=== PATIENT | female | born 1995 | race Caucasian/White ===

== ENCOUNTER → 2018-02-05 16:04 | Outpatient (CLI) | payer OTHER, SELFPAY ==
[2018-02-06 00:31] LABS: Chlamydia Trachomatis by PCR Negative (Negative); Neisserai gonorrhoeae by PCR Negative (Negative); Probe Check PASS; Sample Adequacy Control PASS; Specimen Processing Control PASS
[2018-02-08 14:29] LABS: HPV Reflexed? NOT INDICATED
== END ==
PROVIDERS: Visit Provider Obstetrics & Gynecology
DX: Z32.01 Encounter for pregnancy test, result positive (principal); Z12.4 Encounter for screening for malignant neoplasm of cervix; Z11.3 Encounter for screening for infections with a predominantly sexual mode of transmission
CPT/HCPCS: 87491; 87591; 88175; G0145

== ENCOUNTER → 2018-02-19 15:55 | Outpatient (CLI) | payer OTHER, SELFPAY ==
[2018-02-19 17:54] LABS: Absolute Lymphocyte Count 2.47 X10^3/ul (0.83-4.51); Absolute Neutrophil Count 11.3 X10^3/uL (2.0-7.7); Basophil# 0.03 X10^3/uL; Basophil% 0.2 % (0-1); Eosinophil# 0.11 X10^3/uL; Eosinophils% 0.7 % (0-5); Hematocrit 36.8 % (37-47); Hemoglobin 12.5 g/dl (12.0-15.0); Lymphocyte # 2.47 X10^3/ul (4.0); Lymphocyte % 16.7 % (19-41); Mean Corpuscular Hgb 29.5 pg (27.0-32.0); Mean Corpuscular Volume 86.8 fL (81-99); Mean Platelet Vol. 11.6 fl (6.2-12.0); Monocyte# 0.91 X10^3/uL; Monocyte% 6.1 % (0-10); Neutrophil # 11.28 X10^3/uL (2.7-7.7); Neutrophil % 76.1 % (47-70); Platelet Count 301 K/mm3 (150-450); RBC Distribution Width CV 13.2 % (11.6-14.6); RBC Distribution Width SD 41.9 fl (35.1-43.9); Red Blood Count 4.24 M/mm3 (4.2-5.4); White Blood Count 14.8 K/mm3 (4.4-11.0)
[2018-02-19 17:58] LABS: POSITIVE COUNT NO; POSITIVE DIFFERENTIAL NO; POSITIVE MORPHOLOGY NO
[2018-02-19 18:42] LABS: Color, Urine Yellow (Yellow); Glucose, Dipstick Normal (Normal); Ketone-Dipstick Negative (Negative); Leukocyte Esterase-Dipstick 25 /ul (Negative); Nitrite-Dipstick Negative (Negative); Occult Blood-Urine Negative /ul (Negative); Protein-Dipstick Negative (Negative); Urine Bilirubin Dipstick Negative (Negative); Urine Clarity Clear (Clear); Urine Urobilinogen Normal (Normal)
[2018-02-19 18:46] LABS: Thyroid Stim Hormone (TSH) 6.91 uIU/mL (0.358-3.74)
[2018-02-19 18:59] LABS: Amphetamine Urine VISTA NEGATIVE (<1000 ng/mL); Barbiturate Urine VISTA NEGATIVE (< 200 ng/mL); Benzodiazepine Urine VISTA NEGATIVE (< 200 ng/mL); Cocaine Urine VISTA NEGATIVE (< 300 ng/mL); Ecstacy Urine VISTA NEGATIVE (< 500 ng/mL); Methadone Urine VISTA NEGATIVE (< 300 ng/mL); PCP Urine VISTA NEGATIVE (< 25 ng/mL); THC Urine VISTA NEGATIVE (< 50 ng/mL); Vista UDS pH Range 6
[2018-02-19 19:06] LABS: COTININE Drug Screen Negative (<200 ng/mL)
[2018-02-20 11:00] LABS: HIV - WCH Non-Reactive (Nonreactive); Rubella IgG 112.9 IU/mL
[2018-02-21 12:34] LABS: Free T3 2.7 pg/mL (2.18-3.98); T4 Free Direct 1.03 ng/dL (0.76-1.46)
[2018-02-22 04:35] LABS: Prenatal RPR NONREACTIVE (NONREACTIVE)
[2018-02-22 11:50] LABS: HEPATITIS B SURFACE AG Negative (Negative); Hep C Antibodies 0.2 s/co ratio (0.0-0.9); V-Zoster IgG (Immunity) 1468 index (Immune >165)
== END ==
PROVIDERS: Visit Provider Obstetrics & Gynecology
DX: Z34.81 Encounter for supervision of other normal pregnancy, first trimester (principal)
CPT/HCPCS: 36415; 80307; 81002; 84439; 84443; 84481; 85025; 86703; 86762; 86787; 86803; 87340

== ENCOUNTER → 2018-06-19 13:16 | Outpatient (CLI) | payer OTHER, SELFPAY ==
[2018-06-19 16:29] LABS: Hematocrit 34.1 % (37-47); Hemoglobin 11.2 g/dl (12.0-15.0); Mean Corp Hgb Conc 32.8 g/gl (32-36); Mean Corpuscular Hgb 30.7 pg (27.0-32.0); Mean Corpuscular Volume 93.4 fL (81-99); Mean Platelet Vol. 11.9 fl (6.2-12.0); Platelet Count 257 K/mm3 (150-450); RBC Distribution Width CV 13.6 % (11.6-14.6); RBC Distribution Width SD 44.9 fl (35.1-43.9); Red Blood Count 3.65 M/mm3 (4.2-5.4); White Blood Count 12.4 K/mm3 (4.4-11.0)
[2018-06-19 16:30] LABS: Glucose Challenge Gest 1H 50g 127 mg/dL (70-140)
[2018-06-19 16:33] LABS: Scan Indicated on CBC? Y/N NO
== END ==
PROVIDERS: Visit Provider Obstetrics & Gynecology
DX: Z34.82 Encounter for supervision of other normal pregnancy, second trimester (principal)
CPT/HCPCS: 36415; 82950; 85027; 86850

== ENCOUNTER → 2018-08-14 13:40 | Outpatient (CLI) | payer OTHER, SELFPAY ==
--- OUTSIDE RECORDS SUMMARY | 2018-10-19 10:25 | XMS RPT_ITS ---
:1995 Author Organization [facility] Care Team Providers Name Role Phone Guera, Abrahan Attending Unavailable Primay Care Physicia, No Primary Care Unavailable Seals, Abrahan Attending Unavailable Seals, Abrahan Referring Unavailable Primay Care Physicia, No Primary Care Unavailable Seals, Abrahan Attending Unavailable Primay Care Physicia, No Primary Care Unavailable Seals, Abrahan Attending Unavailable Primay Care Physicia, No Primary Care Unavailable PROBLEMS PROBLEMS DATE TYPE CONDITION / CODE ATTENDING STATUS SOURCE 08/14/2018 Unknown Z36.85 - Encounter Abrahan Lynne for Community screening for Hospital Streptococcus B / Repository Z36.85(ICD-10) 02/19/2018 Unknown Z34.81 - Encounter Abrahan Lynne for supervision of Community other normal Hospital , first Repository trimester / Z34.81(ICD-10) PROCEDURES PROCEDURES No Procedure Records FoundRESULTS RESULTS Observed: 08/14/2018 Status: F Source: [place] MCDONNELL, GROUP B 11:50 AM [facility] STREPTOCOCCUS REPOSITORY Comments: VAGINAL/RECTAL DANIA Culture Group B Beta Streptococcus is not isolated. Performed By: #### M100.1800 #### [facility] [address] [place], [address] GLUCOSE CHALLENGE GEST Collected: 06/19/2018 Status: F Source: [place] 1H 50G 1:20 PM [facility] REPOSITORY TYPE CODE TESTS RESULT OUT OF RANGE REFERENCE UNITS LAB L501.0250 70-140 mg/dL Normal GLU GEST 127 50g 1H Performed By: #### L501.0250 #### [facility] [address] [place], [place], [id number] CBC-COMPLETE BLOOD CNT Collected: 06/19/2018 Status: F Source: [place] NO DIFF 1:20 PM [facility] REPOSITORY TYPE CODE TESTS RESULT OUT OF RANGE REFERENCE UNITS LAB L100.1000 4.4-11.0 K/mm3 High WBC 12.4 LAB L100.1200 4.2-5.4 M/mm3 Low RBC 3.65 LAB L100.1300 12.0-15.0 g/dl Low HGB 11.2 LAB L100.1400 37-47 % Low HCT 34.1 LAB L100.1500 81-99 fL Normal MCV 93.4 LAB L100.1600 27.0-32.0 pg Normal MCH 30.7 LAB L100.1700 32-36 g/gl Normal MCHC 32.8 LAB L100.1810 11.6-14.6 % Normal RDW CV 13.6 LAB L100.1820 35.1-43.9 fl High RDW SD 44.9 LAB L100.1900 150-450 K/mm3 Normal PLT 257 LAB L100.2000 6.2-12.0 fl Normal MPV 11.9 Performed By: #### L100.0500 #### [facility] [address] [place], [place], [id number] ANTIBODY SCREEN Collected: 06/19/2018 Status: F Source: [place] 1:20 PM [facility] REPOSITORY TYPE CODE TESTS RESULT OUT OF RANGE REFERENCE UNITS LAB B100.4000 Normal Antibody NEGATIVE Screen Performed By: #### B100.4000 #### [facility] [address] [place], [place], [address] URINE DRUG SCREEN Collected: 02/19/2018 Status: F Source: [place] (VISTA) 4:00 PM [facility] REPOSITORY Order Comment: Comments: UNK List of Drugs Taken or Suspected? UNK TYPE CODE TESTS RESULT OUT OF RANGE REFERENCE UNITS LAB L505.0075 TO BE Normal CONFIRMED Result Comment: CONFIRMATORY TESTING FOR ALL POSITIVE URINE DRUG SCREEN RESULTS WILL ONLY BE SENT OUT UPON PHYSICIAN ORDER. VISTA Urine Drug Screen methods provide only preliminary analytical test results. A more specific alternate chemical method must be used in order to obtain a confirmed analytical result. Gas chromatography/mass spectrometery (GC/MS) is the preferred confirmatory method. Clinical consideration and professional judgement should be applied to any drug of abuse test result, particularly when preliminary positive results are used. URINE TCA TESTING MUST BE ORDERED SEPARATELY. USE TEST MNEMONIC: [facility] LAB L505.5005 VISTA UDS PH 6 Normal LAB L505.5015 <1000 ng/mL AMPHETAMINES Normal NEGATIVE LAB L505.5025 < 200 ng/mL BARBITIURATES Normal NEGATIVE LAB L505.5035 < 200 ng/mL BENZODIAZIPINE Normal NEGATIVE LAB L505.5045 < 300 ng/mL COCAINE Normal NEGATIVE LAB L505.5055 < 500 ng/mL ECSTACY Normal NEGATIVE LAB L505.5065 < 300 ng/mL METHADONE Normal NEGATIVE LAB L505.5075 < 300 ng/mL OPIATES Normal NEGATIVE LAB L505.5085 < 25 ng/mL PCP Normal NEGATIVE LAB L505.5095 < 50 ng/mL THC Normal NEGATIVE Performed By: #### L505.5000, L505.6240 #### [facility] [address] [place], [address] NICOTINE URINE DRUG Collected: 02/19/2018 Status: F Source: [place] SCREEN 4:00 PM [facility] REPOSITORY Order Comment: Comments: UNK List of Drugs Taken or Suspected? UNK TYPE CODE TESTS RESULT OUT OF RANGE REFERENCE UNITS LAB L505.6250 TO BE Normal CONFIRMED Result Comment: CONFIRMATORY TESTING FOR ALL POSITIVE URINE DRUG SCREEN RESULTS WILL ONLY BE SENT OUT UPON PHYSICIAN ORDER. The results of Urine Drug Screen methods provide only preliminary analytical test results. A more specific alternate chemical method must be used in order to obtain a confirmed analytical result. Gas chromatography/mass spectrometery (GC/MS) is the preferred confirmatory method. Clinical consideration and professional judgement should be applied to any drug of abuse test result, particularly when preliminary positive results are used. LAB L505.6270 <200 ng/mL Normal COT DRG Negative SCREEN Result Comment: Cotinine is the first-stage metabolite of Nicotine. Performed By: #### L505.5000, L505.6240 #### [facility] [address] [place], [place], [address] CBC W/DIFF, AUTOMATED Collected: 02/19/2018 Status: F Source: [place] 4:00 PM [facility] REPOSITORY TYPE CODE TESTS RESULT OUT OF RANGE REFERENCE UNITS LAB L100.1000 4.4-11.0 K/mm3 High WBC 14.8 LAB L100.1200 4.2-5.4 M/mm3 Normal RBC 4.24 LAB L100.1300 12.0-15.0 g/dl Normal HGB 12.5 LAB L100.1400 37-47 % Low HCT 36.8 LAB L100.1500 81-99 fL Normal MCV 86.8 LAB L100.1600 27.0-32.0 pg Normal MCH 29.5 LAB L100.1700 32-36 g/gl Normal MCHC 34.0 LAB L100.1810 11.6-14.6 % Normal RDW CV 13.2 LAB L100.1820 35.1-43.9 fl Normal RDW SD 41.9 LAB L100.1900 150-450 K/mm3 Normal PLT 301 LAB L100.2000 6.2-12.0 fl Normal MPV 11.6 LAB L100.2100 47-70 % High NEUT% 76.1 LAB L100.2200 19-41 % Low LY% 16.7 LAB L100.2300 0-10 % Normal MONO% 6.1 LAB L100.2400 0-5 % Normal EO% 0.7 LAB L100.2500 0-1 % Normal BASO% 0.2 LAB L100.2550 0.0-0.9 % Normal IM GRAN % 0.200 Result Comment: IG% - Immature Granulocytes (promyelocytes, myelocytes and metamyelocytes) > 1% indicates that a LEFT SHIFT is Present. LAB L100.2620 2.0-7.7 X10 3/uL High Absolute Neut 11.3 LAB L100.2720 0.83-4.51 X10 3/ul Normal Absolute Lymph 2.47 Performed By: #### L100.0100 #### [facility] [address] [place], [address] THYROID STIM HORMONE Collected: 02/19/2018 Status: F Source: [place] (TSH) 4:00 PM [facility] REPOSITORY Order Comment: PLEASE ADD TO BLOOD IN LAB FROM 02/19/18. RACK TY1 4 F Comments: UNK TYPE CODE TESTS RESULT OUT OF RANGE REFERENCE UNITS LAB L501.9520 0.358-3.74 uIU/mL High TSH 6.91 Performed By: #### L501.9520, L501.25700, L506.0400 #### [facility] [address] [place], [address] FREE T3 Collected: 02/19/2018 Status: F Source: [place] 4:00 PM [facility] REPOSITORY Order Comment: PLEASE ADD TO BLOOD IN LAB FROM 02/19/18. RACK TY1 4 F Comments: UNK TYPE CODE TESTS RESULT OUT OF RANGE REFERENCE UNITS LAB L501.19047 2.18-3.98 pg/mL Normal FREE T3 2.7 Performed By: #### L501.9520, L501.71682, L506.0400 #### [facility] [address] [place], [address] T4 FREE DIRECT Collected: 02/19/2018 Status: F Source: [place] 4:00 PM [facility] REPOSITORY Order Comment: PLEASE ADD TO BLOOD IN LAB FROM 02/19/18. RACK TY1 4 F Comments: UNK TYPE CODE TESTS RESULT OUT OF RANGE REFERENCE UNITS LAB L506.0400 0.76-1.46 ng/dL Normal T4 FREE 1.03 DIRECT Performed By: #### L501.9520, L501.48863, L506.0400 #### [facility] [address] [place], [address] URINALYSIS, ROUTINE Collected: 02/19/2018 Status: F Source: [place] (DIPSTICK) 4:00 PM [facility] REPOSITORY Order Comment: Comments: UNK How was Urine Obtained? Urine, Random TYPE CODE TESTS RESULT OUT OF RANGE REFERENCE UNITS LAB L400.3000 Yellow COLOR Normal Yellow LAB L400.3050 Clear Normal CLARITY Clear LAB L400.3200 Normal mg/dl Normal GLUCOSE, UR Normal LAB L400.3300 Negative mg/dL Normal BILIRUBIN URINE Negative LAB L400.3400 Negative mg/dl Normal KETONE UR Negative LAB L400.3465 1.002-1.030 Normal SP.GR. DIPSTX 1.010 LAB L400.3550 5.0 - 8.0 pH UR Normal 6.0 LAB L400.3600 Negative mg/dl PROT Normal DIPSTX Negative LAB L400.3700 Normal mg/dl Normal UROBILI Normal LAB L400.3750 Negative Normal NITRITE UR Negative LAB L400.3780 Negative /ul Normal OCCULT BLOOD-UR Negative LAB L400.3800 Negative /ul High LEUK 25 ESTERASE Performed By: #### L400.2010 #### [facility] [address] [facility] [address] [place], [place], [address] T AND S-NO Collected: 02/19/2018 Status: F Source: [place] CHARGE W/PNP 4:00 PM [facility] REPOSITORY Order Comment: Reason for Type AND Screen/Red Cells: Surgery? N TYPE CODE TESTS RESULT OUT OF RANGE REFERENCE UNITS LAB B10.0800 O Normal BLOOD NEGATIVE TYPE GEL LAB B100.4050 Normal Ab SCREEN NEGATIVE GEL Performed By: #### B100.7550 #### [facility] [address] [facility] [address] [place], [place], [address] RUBELLA IGG Collected: 02/19/2018 Status: F Source: [place] 4:00 PM [facility] REPOSITORY Order Comment: Comments: UNK TYPE CODE TESTS RESULT OUT OF RANGE REFERENCE UNITS LAB L509.4000 IU/mL Normal Rubella IgG 112.9 Result Comment: Antibody results Interpretation of Immune Status < 5 IU/ml Presumed Non-immune 5 - < 10 IU/ml Equivocal > or = 10 IU/ml Presumed Immune Performed By: #### L509.4000, L3890.6005 #### [facility] [address] [place], [place], [address] HIV - H Collected: 02/19/2018 Status: F Source: [place] 4:00 PM [facility] REPOSITORY Order Comment: Comments: UNK TYPE CODE TESTS RESULT OUT OF RANGE REFERENCE UNITS LAB L3890.6005 Nonreactive Normal HIV - WCH Non-Reactive Performed By: #### L509.4000, L3890.6005 #### [facility] [address] [place], [place], [address] RPR Collected: 02/19/2018 Status: F Source: [place] 4:00 PM [facility] REPOSITORY TYPE CODE TESTS RESULT OUT OF REFERENCE UNITS RANGE LAB L700.5100 NONREACTIVE Normal RPR NONREACTIVE Performed By: #### L700.5100 #### [facility] [address] [place], [place], [address] HEPATITIS B SURFACE Collected: 02/19/2018 Status: F Source: [place] AG 4:00 PM [facility] REPOSITORY Order Comment: Comments: UNK TYPE CODE TESTS RESULT OUT OF RANGE REFERENCE UNITS LAB L3100.0400 Negative Normal HB Negative SURF AG Result Comment: Performed at: [facility] [id number] Job Training Specialist: Subhash Hidalgo PhD, Phone: [phone] Performed By: #### L3100.0390, L3100.0625, L3400.0000 #### [facility] (refer to report for specific site) refer to report for address and phone number HEPATITIS C ANTIBODIES Collected: 02/19/2018 Status: F Source: [place] 4:00 PM [facility] REPOSITORY Order Comment: Comments: UNK TYPE CODE TESTS RESULT OUT OF RANGE REFERENCE UNITS LAB L3100.0650 0.0-0.9 s/co ratio Normal HEP C AB 0.2 Result Comment: Negative: < 0.8 Indeterminate: 0.8 - 0.9 Positive: > 0.9 The CDC recommends that a positive HCV antibody result be followed up with a HCV Nucleic Acid Amplification test (278692). Performed By: #### L3100.0390, L3100.0625, L3400.0000 #### [facility] (refer to report for specific site) refer to report for address and phone number V-ZOSTER IGG Collected: 02/19/2018 Status: F Source: [place] (IMMUNITY) 4:00 PM [facility] REPOSITORY Order Comment: Comments: UNK TYPE CODE TESTS RESULT OUT OF RANGE REFERENCE UNITS LAB L3400.0000 Immune >165 index Normal VZOST IgG 1468 [id number] Result Comment: Negative <135 Equivocal 135 - 165 Positive >165 A positive result generally indicates exposure to the pathogen or administration of specific immunoglobulins, but it is not indication of active infection or stage of disease. Performed By: #### L3100.0390, L3100.0625, L3400.0000 #### [facility] (refer to report for specific site) refer to report for address and phone number CT/NG WCH BY PCR Collected: 02/05/2018 Status: F Source: [place] 2:15 PM [facility] REPOSITORY TYPE CODE TESTS RESULT OUT OF RANGE REFERENCE UNITS LAB L8200.2100 Negative Normal Chlam Negative Trac PCR LAB L8200.2200 Negative Normal NG by Negative PCR Performed By: #### L8200.2000 #### [facility] [address] [place], [address] PAP I-G W/RFX HRHPV Collected: 02/05/2018 Status: F Source: [place] 2:15 PM [facility] REPOSITORY Order Comment: CYTOLOGY INFORMATION: - CLINICAL INFORMATION: - DATE LMP/MENOPAUSE: 12/07/17 LMP - COLLECTION VIAL: Thin Prep Vial - CRYSTAL GRINDER SOURCE: CERVICAL/ENDOCERVICAL - COLLECTION TECHNIQUE: BRUSH/SPATULA Specimen Comment: [id number] Specimen Comment: No. of containers..01 ThinPrep Vial TYPE CODE TESTS RESULT OUT OF RANGE REFERENCE UNITS LAB L7400.0800 . Normal DIAGN Comment Result Comment: NEGATIVE FOR INTRAEPITHELIAL LESION AND MALIGNANCY. LAB L7400.0900 . Normal ADEQ Comment Result Comment: Satisfactory for evaluation. Endocervical and/or squamous metaplastic cells (endocervical component) are present. LAB L7400.1400 . Normal PERFORM Comment Result Comment: Deborah Johnson, Spinal Surgeon (ASCP) LAB L7400.2575 . Normal TEST METHOD Comment Result Comment: This liquid based ThinPrep(R) pap test was screened with the use of an image guided system. LAB L7400.2600 . Normal . COMM LAB L7400.2700 . Normal PAPSMR Comment Result Comment: The Pap smear is a screening test designed to aid in the detection of premalignant and malignant conditions of the uterine cervix. It is not a diagnostic procedure and should not be used as the sole means of detecting cervical cancer. Both false-positive and false-negative reports do occur. LAB L7400.2800 . Normal HPV RFLX Comment Result Comment: The HPV DNA reflex criteria were not met with this specimen result therefore, no HPV testing was performed. Performed at: - [facility] [id number] Job Training Specialist: Eloina Marie MD, Phone: [phone] Performed By: #### L7400.0350 #### [facility] (refer to report for specific site) refer to report for address and phone number ALLERGIES ALLERGIES No Allergies Records FoundENCOUNTERS ENCOUNTERS ADMIT/DISCHARGE ACCOUNT ADMITTING ENCOUNTER LOCATION SOURCE NUMBER CLASS 08/14/2018 [id number] [place] [facility] ing:LAB[facility] Repository 06/19/2018 [id number] [facility] [place] [facility] ing:WOBLAB Repository 02/19/2018 [id number] [facility] [place] [facility] ing:WOBLAB Repository 02/05/2018 [id number] [facility] ing:[facility] Repository PAYERS PAYERS ENCOUNTER GUARANTOR PAYER SUBSCRIBER SOURCE 08/14/2018 [facility] AMANDA GRAF [place] [id number] Insurance:[facility] Number: Repository [id number]: [phone] [id number] [phone] (HP) Date:5319-31-20[address], [place] [address]YE: 08/14/2018 Secondary NOT GIVENUNK [place] Insurance:SELF PAY [facility] Number: Effective Repository Date:2018-08-14 06/19/2018 [place] [id number] Insurance:Critical access hospital Number: [place] [id number]: [id number] Date:3287-44-09[address] [address] [address]YE: 06/19/2018 Secondary NOT GIVENUNK [place] Insurance:SELF PAY [facility] Number: Effective Repository Date:2018-06-19 02/19/2018 [facility] AMANDA [place] [id number] Insurance:Critical access hospital Number: [place] [id number]: [id number] Date:1972-09-83[address] [address], [place] [address]RU: 02/19/2018 Secondary NOT GIVENUNK [place] Insurance:SELF PAY [facility] Number: Effective Repository Date:2018-02-19 02/05/2018 [facility] AMANDA [place] [id number] Insurance:Critical access hospital Number: [place] [id number]: / [id number] () Date:8930-36-41[address] [address] [address]UQ: 02/05/2018 Secondary NOT GIVENUNK [place] Insurance:SELF PAY [facility] Number: Effective Repository Date:2018-02-05
== END ==
PROVIDERS: Visit Provider Obstetrics & Gynecology
DX: Z36.85 Encounter for antenatal screening for Streptococcus B (principal)
CPT/HCPCS: 87081

== ENCOUNTER → 2018-09-04 12:00 | Outpatient (CLI) | payer OTHER, SELFPAY ==
[2018-09-04 13:49] LABS: Hematocrit 33.8 % (37-47); Hemoglobin 10.5 g/dl (12.0-15.0); Mean Corp Hgb Conc 31.1 g/gl (32-36); Mean Corpuscular Hgb 27.7 pg (27.0-32.0); Mean Corpuscular Volume 89.2 fL (81-99); Mean Platelet Vol. 13.2 fl (6.2-12.0); Platelet Count 210 K/mm3 (150-450); RBC Distribution Width CV 14.3 % (11.6-14.6); RBC Distribution Width SD 45.4 fl (35.1-43.9); Red Blood Count 3.79 M/mm3 (4.2-5.4); Scan Indicated on CBC? Y/N NO; White Blood Count 10.1 K/mm3 (4.4-11.0)
[2018-09-04 13:57] LABS: International Normalized Ratio 0.9; Partial Thromboplast Time 28.8 Seconds (24.1-36.2); Prothrombin Time (Protime)PT. 11.7 SECONDS (11.7-14.9)
[2018-09-04 14:07] LABS: AST(SGOT) 22 U/L (15-37); Alanine Aminotransfer ALT/SGPT 18 U/L (13-56); Creatinine, Serum 0.77 mg/dL (0.55-1.02); EST Glomerular Filtration Rate 97 mL/min (>60); Est Glom Filt Rate - Afr Amer 117 mL/min (>60); Uric Acid 6.6 mg/dL (2.6-6.0)
== END ==
PROVIDERS: Visit Provider Obstetrics & Gynecology
DX: Z34.83 Encounter for supervision of other normal pregnancy, third trimester (principal); O12.13 Gestational proteinuria, third trimester; Z3A.00 Weeks of gestation of pregnancy not specified
CPT/HCPCS: 36415; 82565; 84450; 84460; 84550; 85027; 85610; 85730

== ENCOUNTER → 2018-09-05 16:52 | Outpatient (CLI) | payer OTHER, SELFPAY ==
[2018-09-05 18:19] LABS: 24HR. UA Prot. Total Volume 1565 mL; Urine Protein (24 Hour) 154.7 mg/dL (<11.9)
== END ==
PROVIDERS: Visit Provider Obstetrics & Gynecology
DX: Z34.83 Encounter for supervision of other normal pregnancy, third trimester (principal); O12.13 Gestational proteinuria, third trimester; Z3A.00 Weeks of gestation of pregnancy not specified
CPT/HCPCS: 81050; 84156

== ENCOUNTER 2018-09-06 15:40 | Inpatient (IN) | payer OTHER, SELFPAY ==
[2018-09-06] VITALS (12 sets, daily range): BP systolic 109–159; BP diastolic 58–99; PULSE 70–115; RESP 16–25; TEMP 35.8–36.7; O2SAT 94–100; BMI 38.1
[2018-09-06] MEDS: Lactated Ringers 1,000 ML 50 ML IV (16:20)
--- NOTE | 2018-09-06 16:34 | PCM.HP.OB ---
- Problem List (1) 39 weeks gestation of Status: Acute (2) Preeclampsia Status: Acute Qualifiers: Trimester: third trimester Qualified Code(s): O14.93 - Unspecified pre-eclampsia, third trimester History Date of Admission: 09/06/18 Final UYNE: 09/13/18 Final UYEN Source: US <20 weeks Gestational age: 39 Weeks and 0 Days History of this : This is a 23 year-old, G [1], P [0], at 39 weeks gestational age presenting for induction of labor for preeclampsia. Patient was seen in the office on 09/05 and 09/06 with elevated BPs and 2+ proteinuria. 24h urine protein was > 2000mg. Allergies No Known Allergies Allergy (Verified 09/06/18 16:04) Home Medications: Home Medications Vits [Prenatabs FA] 1 tablet PO DAILY 09/06/18 Smoking Status: Never smoker Number of Fetus(es): 1 Heart Tracin, moderate variability, + accelerations, no decelerations TOCO Analysis: No contractions History Past Pregnancies: Past Pregnancies Delivery Date Name GA/Weeks Outcome Route Weight Gender Labor Length Anesthesia Delivery Location Provider FOB Expected Delivery Method: Spontaneous Vaginal Assessment/Plan All Active Problems 39 weeks gestation of (Acute) Preeclampsia (Acute) This is a 23 year-old, G [], P [], at 39 weeks gestational age.
--- NOTE | 2018-09-06 16:38 | HP.PCM_ITS ---
- Problem List (1) 39 weeks gestation of Status: Acute (2) Preeclampsia Status: Acute Qualifiers: Trimester: third trimester Qualified Code(s): O14.93 - Unspecified pre- eclampsia, third trimester History Date of Admission: 09/06/18 Final UYEN: 09/13/18 Final UYEN Source: US <20 weeks Gestational age: 39 Weeks and 0 Days History of this : This is a 23 year-old, G [1], P [0], at 39 weeks gestational age presenting for induction of labor for preeclampsia. Patient was seen in the office on 09/05 and 09/06 with elevated BPs and 2+ proteinuria. 24h urine protein was > 2000mg. Allergies No Known Allergies Allergy (Verified 09/06/18 16:04) Home Medications: Home Medications Vits [Prenatabs FA] 1 tablet PO DAILY 09/06/18 Smoking Status: Never smoker Number of Fetus(es): 1 Heart Tracin, moderate variability, + accelerations, no decelerations TOCO Analysis: No contractions History Past Pregnancies: Past Pregnancies Delivery Date Name GA/Weeks Outcome Route Weight Gender Labor Length Anesthesia Delivery Location Provider FOB Expected Infant Delivery Method: Spontaneous Vaginal Assessment/Plan All Active Problems 39 weeks gestation of (Acute) Preeclampsia (Acute) This is a 23 year-old, G [], P [], at 39 weeks gestational age.
[2018-09-06 16:47] LABS: Hematocrit 34.2 % (37-47); Mean Corp Hgb Conc 32.2 g/gl (32-36); Mean Corpuscular Hgb 27.9 pg (27.0-32.0); Mean Corpuscular Volume 86.8 fL (81-99); Mean Platelet Vol. 12.4 fl (6.2-12.0); Platelet Count 214 K/mm3 (150-450); RBC Distribution Width CV 14.2 % (11.6-14.6); Red Blood Count 3.94 M/mm3 (4.2-5.4); White Blood Count 10.6 K/mm3 (4.4-11.0)
[2018-09-06 17:03] LABS: Scan Indicated on CBC? Y/N NO
[2018-09-06] MEDS: Lactated Ringers 1,000 ML 999 ML IV (17:25)
[2018-09-06] MEDS: Sodium Citrate/Citric Acid 30 ML UDC PO (17:45)
--- NOTE | 2018-09-06 17:49 | HP.PCM_ITS ---
- Problem List (1) 39 weeks gestation of Status: Acute (2) Preeclampsia Status: Acute Qualifiers: Trimester: third trimester Qualified Code(s): O14.93 - Unspecified pre- eclampsia, third trimester (3) Breech presentation Status: Acute Qualifiers: Fetus number: single or unspecified fetus Qualified Code(s): O32.1XX0 - Maternal care for breech presentation, not applicable or unspecified History Date of Admission: 09/06/18 Final UYEN: 09/13/18 Final UYEN Source: US <20 weeks Gestational age: 39 Weeks and 0 Days History of this : This is a 23 year-old, G [1], P [0], at 39 weeks gestational age presents for scheduled induction of labor for preeclampsia. She was seen in the office 09/05 and 09/06 with elevated BPs and 2+ proteinuria. Her 24h urine protein level was elevated. + FM today. No leaking of fluid or vaginal bleeding. Medical History: Medical History (Last Updated 09/06/18 @ 17:45 by Kenyetta Tidwell MD) Subclinical hypothyroidism E03.9 Allergies No Known Allergies Allergy (Verified 09/06/18 16:04) Home Medications: Home Medications Vits [Prenatabs FA] 1 tablet PO DAILY 09/06/18 multivitamin Smoking Status: Never smoker Alcohol: None Number of Fetus(es): 1 Heart Tracin, moderate variability, + accelerations, no decelerations TOCO Analysis: History Past Pregnancies: Past Pregnancies Delivery Date Name GA/Weeks Outcome Route Weight Gender Labor Length Anesthesia Delivery Location Provider FOB Labs: Mom's Problem List Problem Status Onset Code 39 weeks gestation of Acute Z3A.39 Preeclampsia Acute O14.90 Breech presentation Acute O32.1XX0 Mom's Labs & Results 09/06/18 09/06/18 16:15 16:15 WBC 10.6 RBC 3.94 L Hgb 11.0 L Hct 34.2 L MCV 86.8 MCH 27.9 MCHC 32.2 RDW 14.2 RDW Differential 45.0 H Plt Count 214 MPV 12.4 H Blood Type Pending Antibody Screen Pending Course Did the patient receive Yes care? Labs Blood Type: O RH: NEGATIVE RPR/VDRL/Syphilis Nonreactive Rubella status Immune HbSAg Negative Date Done: 02/19/18 Chlamydia Negative Gonorrhea Negative HIV/AIDS Non-Reactive Group B Strep: Negative Current Obstetrical History Gestational Diabetes No Incompetent Cervix No Infertility No IUGR No Macrosomia No Hypertension/Pre-eclampsia No Placenta Previa/Abruption No PTL/PROM No Uterine anomaly No Oligohydramnios No Polyhydramnios No Multiple gestation No Past Medical History Asthma No Diabetes No Hypertension No Heart disease No Mitral valve prolapse No Neurologic/Seizure disorder/ No Migraines Kidney disease No Liver disease No Varicosities No Clotting disorders/Hx of DVT No Thyroid Dysfunction No Other medical diseases No Psychiatric disorders No Major trauma No Abnormal PAP smear No Sleep apnea No Mammogram in the last 2 years No Social History Marital Status: Alleged father maricel appiah Hx Smoking No Smoking Status Never smoker Expected Infant Delivery Method: Primary Section Number of Visits: 13 Review of Systems Eyes: Denies: Blurred vision, Vision Change Cardiovascular: Denies: Chest Pain Respiratory: Denies: Shortness of Breath Gastrointestinal: Denies: Abdominal Pain Gynecological: Reports: - - No contractions, leaking of fluid. Denies: Vaginal bleeding Physical Exam Vitals: AVSS General: Alert, Oriented x3, Cooperative, No apparent distress HEENT: Atraumatic, Normocephalic Cardiovascular: Regular rate, Regular Rhythm, Normal S1, Normal S2 Lungs: Clear to auscultation, Normal air movement Abdomen: Soft, Non Tender, Non-Distended, Gravid, - - pannal edema Extremities:: Other - b/l LE edema, no calf tenderness Neurological: Deep Tendon Reflexes 2+/4 and Symmetrical, Neuro grossly intact, - - no clonus Estimated gestational size: Appropriate for gestational size Presentation: Breech Assessment/Plan All Active Problems 39 weeks gestation of (Acute) Preeclampsia (Acute) Breech presentation (Acute) This is a 23 year-old, G 1 at 39 weeks gestational age with preeclampsia without severe features and breech presentation. - Reviewed with patient dx of preeclampsia and indication for delivery. - Bedside US confirms breech presentation with SEBASTIEN 6.7cm. - Findings reviewed with patient. Not candidate for ECV. Advised section. Reviewed risks including, but not limited to pain, bleeding, hemorrhage, possible need for blood transfusion, need for additional procedures, intra-abdominal viscus injury, infection, VTE, laceration, TTN. Patient and given opportunity to ask questions and questions answered to their satisfaction. Blood transfusion acceptable if emergently indicated. - Consents signed - LARC declined - Maternal and statuses reassuring - NPO - Proceed with section
[2018-09-06] MEDS: Cefazolin 2 GM in 0.9% Normal Saline 100 ML IV (18:00)
[2018-09-06] MEDS: Oxytocin 30 units/NS 500 ml 30 UNITS/500 ML IV.SOLN 167 UNITS IV (18:25)
--- NOTE | 2018-09-06 19:24 | DCINST_ITS ---
Discharge Diet: No Restrictions Discharge Activity: Return to Normal Activity, May not drive while taking narcotic pain medications., May Shower, - - Do not place anything in the vagina (no douching, no tampons, no intercourse) May resume sexual activity in: 6 weeks Lifting Restrictions: 10 lb Call your doctor if your incision/area has: Continuous Slow Oozing, Sudden Increased Bleeding, Increased Pain/ Swelling, Increased Redness Call your doctor if you observe: Fever of 101 or Higher, Inability to urinate, Inability to have a bowel movement, Using more than one pad per hour, Shortness of breath, Chest pain, Calf discomfort, Uncontrolled pain Suture Line Care: Avoid Pulling/Pushing Remove Dressing in (days):: 4 Cleanse incision/area with: Soap & Water Additional Instructions: If you experience any of the following, contact your healthcare provider. * Bleeding that soaks a pad every hour for 2 hours * Fever 100.4 or higher * Unrelieved incision or abdominal pain * Swelling, redness, discharge or bleeding from your incision or episiotomy site * Your incision begins to separate * Problems urinating (including inability to urinate or burning while urinating). * Visual changes * Severe headache * Flu-like symptoms * Pain or redness in one of both of your breasts * Pain, warmth, tenderness or swelling in your legs, especially the calf area * Frequent nausea and vomiting * Symptoms of depression or anxiety If you experience any of the following, call 911 or go to the nearest Emergency Room. * Chest pain * Problems breathing * Seizure activity * Partial or complete paralysis of a body part, slurred speech, weakness or drooping of the face, or a sudden inability to walk or hold your balance Allergies/Adverse Reactions: Allergies No Known Allergies Allergy (Verified 09/06/18 16:04) Medications to take at Discharge Docusate Sodium [Colace] 100 mg PO BID PRN PRN #60 capsule 09/06/18 Ibuprofen 600 mg PO TID PRN #30 tablet 09/06/18 Vits [Prenatabs FA] 1 tablet PO DAILY 09/06/18 Oxycodone [Oxyir] 5 mg PO Q6H PRN PRN 7 Days #10 tablet 09/07/18 The following prescriptions were given: Oxycodone [Oxyir] 5 mg PO Q6H PRN PRN 7 Days #10 tablet PRN Reason: Severe Pain (6-05/08) Docusate Sodium [Colace] 100 mg PO BID PRN PRN #60 capsule PRN Reason: Constipation Ibuprofen 600 mg PO TID PRN #30 tablet PRN Reason: Pain Follow-Up: Call to make an appointment with your doctor for an incision check in 1-2 weeks. You will also need a 6 week post- follow up appointment. Test results from this visit will be discussed in further detail at your follow- up appointment, if applicable. Please Follow Up With: Abrahan Lynne MD When: 1-2 weeks Primary Care Physician: Care Physician,No Primary [Primary Care Provider] -
--- NOTE | 2018-09-06 19:24 | PCM.OPRPT ---
Problem List (1) 39 weeks gestation of Status: Acute (2) Preeclampsia Status: Acute Qualifiers: Trimester: third trimester Qualified Code(s): O14.93 - Unspecified pre-eclampsia, third trimester (3) Breech presentation Status: Acute Qualifiers: Fetus number: single or unspecified fetus Qualified Code(s): O32.1XX0 - Maternal care for breech presentation, not applicable or unspecified Report of Operation Date of Procedure: 09/06/18 Pre-Operative Diagnosis: 39 weeks gestation, breech presentation, preeclampsia without severe features Post-Operative Diagnosis: 39 weeks gestation, breech presentation, preeclampsia without severe features Surgery/Procedure Performed:: Primary low transverse section Description of Surgical Findings:: Normal-appearing tubes and ovaries bilaterally. Uterus normal. 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 Newell is a 23-year-old 1 who presented for scheduled induction of labor for preeclampsia without severe features. On admission the fetus was found to be breech presentation by ultrasound. She is not a candidate for external cephalic version due to low amniotic fluid. She is advised to proceed with section. Indications, risks, benefits were reviewed with the patient and she agreed to proceed. Consents were signed. Procedure: The patient was taken to the operating room and spinal analgesia was administered. She is placed in a dorsal supine position with left lateral tilt. The perineum and abdomen were prepped and draped in sterile fashion. And the spinal was found to be adequate. A Pfannenstiel incision was made using a scalpel and brought down to incise the subcutaneous tissue and rectus fascia at the midline. Subcutaneous tissue was bluntly dissected off the fascia laterally. The fascial incision was dissected laterally and cephalad using curved Richards scissors. The superior leaflet of the rectus fascia was grasped using Kari clamps and bluntly dissected and sharply dissected from the underlying rectus muscle. In a similar fashion the inferior rectus fascia was dissected from the underlying muscle. The rectus muscles were bluntly at the midline. The peritoneum was identified and entered [sharply]. The bladder blade was placed into the abdomen and the vesicouterine peritoneal fold identified. The fold was incised and a bladder flap created. Bladder blade was then repositioned to the abdomen. A low transverse hysterotomy was made using the [Metzenbaum scissors] to level of the membranes. The hysterotomy was extended bluntly cephalad and caudad. The membranes were then ruptured revealing clear fluid. The the feet were delivered via the hysterotomy with subsequent delivery of the breech. Using gentle bidirectional rotation the was delivered to the level of the shoulders. The left then right upper extremity were swept through the hysterotomy. In the head delivered spontaneously. The cord was doubly clamped and cut and the infant passed to waiting nursery personnel. The placenta was expressed from the uterus. It did appear intact on inspection however there was an accessory lobe. The uterus was cleared of debris and residual membranes. The bladder blade was then replaced into the abdomen. The hysterotomy was then repaired using 0 Vicryl running lock suture. A second imbricating layer was also placed for additional hemostasis. The bladder blade was removed. The anterior cul-de-sac was cleared of debris. The peritoneum and rectus muscles were reapproximated using 2-0 Vicryl running suture. The rectus fascia was closed using 0 Vicryl running suture. The subcutaneous tissue was reapproximated using 2-0 Vicryl in 2 layers. The skin was closed using 4-0 Monocryl subcuticularly. A Mepilex occlusive dressing was placed over the incision. The fundus was firm. The patient was then transferred to the recovery room without complication. Sponge, instrument, and needle counts were correct ?2. - Complications Elevated blood pressures were noted intraoperatively. Blood pressure obtained initially in recovery was 130s over 60s. - Admit VTE Documentation VTE Present on Admission: No VTE Mechan Device Prophylaxis: SCD's VTE Pharm Prophylaxis ordered?: No
--- NOTE | 2018-09-06 19:31 | OP.PCM_ITS ---
Problem List (1) 39 weeks gestation of Status: Acute (2) Preeclampsia Status: Acute Qualifiers: Trimester: third trimester Qualified Code(s): O14.93 - Unspecified pre- eclampsia, third trimester (3) Breech presentation Status: Acute Qualifiers: Fetus number: single or unspecified fetus Qualified Code(s): O32.1XX0 - Maternal care for breech presentation, not applicable or unspecified Report of Operation Date of Procedure: 09/06/18 Pre-Operative Diagnosis: 39 weeks gestation, breech presentation, preeclampsia without severe features Post-Operative Diagnosis: 39 weeks gestation, breech presentation, preeclampsia without severe features Surgery/Procedure Performed:: Primary low transverse section Description of Surgical Findings:: Normal-appearing tubes and ovaries bilaterally. Uterus normal. 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 Newell is a 23-year-old 1 who presented for scheduled induction of labor for preeclampsia without severe features. On admission the fetus was found to be breech presentation by ultrasound. She is not a candidate for external cephalic version due to low amniotic fluid. She is advised to proceed with section. Indications, risks, benefits were reviewed with the patient and she agreed to proceed. Consents were signed. Procedure: The patient was taken to the operating room and spinal analgesia was administered. She is placed in a dorsal supine position with left lateral tilt. The perineum and abdomen were prepped and draped in sterile fashion. And the spinal was found to be adequate. A Pfannenstiel incision was made using a scalpel and brought down to incise the subcutaneous tissue and rectus fascia at the midline. Subcutaneous tissue was bluntly dissected off the fascia laterally. The fascial incision was dissected laterally and cephalad using curved Richards scissors. The superior leaflet of the rectus fascia was grasped using Kari clamps and bluntly dissected and sharply dissected from the underlying rectus muscle. In a similar fashion the inferior rectus fascia was dissected from the underlying muscle. The rectus muscles were bluntly at the midline. The peritoneum was identified and entered [sharply]. The bladder blade was placed into the abdomen and the vesicouterine peritoneal fold identified. The fold was incised and a bladder flap created. Bladder blade was then repositioned to the abdomen. A low transverse hysterotomy was made using the [Metzenbaum scissors] to level of the membranes. The hysterotomy was extended bluntly cephalad and caudad. The membranes were then ruptured revealing clear fluid. The the feet were delivered via the hysterotomy with subsequent delivery of the breech. Using gentle bidirectional rotation the infant was delivered to the level of the shoulders. The left then right upper extremity were swept through the hysterotomy. In the head delivered spontaneously. The cord was doubly clamped and cut and the passed to waiting nursery personnel. The placenta was expressed from the uterus. It did appear intact on inspection however there was an accessory lobe. The uterus was cleared of debris and residual membranes. The bladder blade was then replaced into the abdomen. The hysterotomy was then repaired using 0 Vicryl running lock suture. A second imbricating layer was also placed for additional hemostasis. The bladder blade was removed. The anterior cul-de-sac was cleared of debris. The peritoneum and rectus muscles were reapproximated using 2-0 Vicryl running suture. The rectus fascia was closed using 0 Vicryl running suture. The subcutaneous tissue was reapproximated using 2-0 Vicryl in 2 layers. The skin was closed using 4-0 Monocryl subcuticularly. A Mepilex occlusive dressing was placed over the incision. The fundus was firm. The patient was then transferred to the recovery room without complication. Sponge, instrument, and needle counts were correct ?2. - Complications Elevated blood pressures were noted intraoperatively. Blood pressure obtained initially in recovery was 130s over 60s. - Admit VTE Documentation VTE Present on Admission: No VTE Mechan Device Prophylaxis: SCD's VTE Pharm Prophylaxis ordered?: No
--- NOTE | 2018-09-06 20:43 | PLAC_PTH ---
PATIENT: LIAT COOLEY LOC: WP U#:[id number] AGE/SX: 23/F ROOM: [facility] RE09/06/[address]: Dr. Kenyetta Maxwell MD : 1995 BED: 1 DIS: 09/09/2018 SPEC #: [id number] RECD: 09/06/18 21:28 STATUS: ALEE RESadia #: [id number] RASHAUN: 09/06/18 20:[address]: Kenyetta Eubanks DEPT: SURGICAL PATHOLOGY RECD BY: Gonzalez Ruby ENTERED: 09/09/18 08:11 SP TYPE: PLACENTA OTHR DR: No Primary Care Phys Tissues: Placenta, NOS Procedures: Surgery Specimen Level V HEADER OPERATION: Primary section PRE-OP DIAGNOSIS: 39 weeks, preeclampsia TISSUE SUBMITTED: Placenta MICROSCOPIC DIAGNOSIS Andersen placenta (472 gm): Umbilical cord - trivascular with no evidence of inflammation. Placental membranes - no pathologic change. Placental disc - Francisca-Jesus change, intervillous congestion and mildly increased intraparenchymal microcalcifications. AM:kamran 09/10/18 MICROSCOPIC DESCRIPTION Slides are reviewed. GROSS DESCRIPTION SPECIMEN: PLACENTA / CLINICAL INFORMATION: A. Weight: 2.694 kg B. Gestational Age: 39 weeks C. Sex: Female PLACENTAL WEIGHT (POST FIXATION): 472 gm PLACENTAL DIMENSIONS: 17 x 16 x 3 cm PLACENTAL SHAPE: Body of the placenta appears to be disrupted in the middle, however, appears to be complete. PLACENTAL WEIGHT FOR GESTATIONAL AGE: Within 10-99th percentile MEMBRANES - Present A. Insertion: Marginal B. Site of rupture from edge: Membranes are fragmented and distance of rupture cannot be assessed. C. Color of membrane: Reilly-dennison D. Abnormalities: None UMBILICAL CORD - Present A. Color: Reilly-dennison B. Insertion: Central C. Length: 20 cm D. Diameter: 1-2 cm E. Number of vessels: Three F. Abnormalities: None PLACENTAL DISC - Present A. Color of surface: Reilly-dennison B. surface abnormalities: None C. Maternal cotyledons: Intact with minimal tears D. Attached retro placental clot: No clot E. Cut surface: Dark red and spongy F. Lesions: None G. Separate clot: Absent SECTIONS SUBMITTED: 1. Membrane roll 2. Cord, maternal end 3. Cord, end 4. Placental disc, and maternal surfaces 5. Placental disc, and maternal surfaces 6. Placental disc, and maternal surfaces SJ:kamran 09/09/18 TC:5 CPT: 71229
[2018-09-06] MEDS: Lactated Ringers 1,000 ML 100 ML IV (22:07)
[2018-09-07] VITALS (15 sets, daily range): BP systolic 96–132; BP diastolic 56–85; PULSE 82–104; RESP 16–18; TEMP 36.1–36.9; O2SAT 95–100
[2018-09-07] MEDS: Ketorolac 30 MG/ML Syringe IV ×4 (00:41→18:46)
--- NOTE | 2018-09-07 05:39 | PCM.PN.OB ---
Patient Problems: Active and Suspected Problems (Last Updated 09/06/18 @ 17:45 by Kenyetta Tidwell MD) 39 weeks gestation of (Acute) Preeclampsia (Acute) Breech presentation (Acute) Subjective: Zuleyka is sore this morning, but pain manageable. Not yet out of bed. Her throat is dry. Denies nausea, vomiting. Tolerates CLD. No flatus yet. She is and latches well. Denies headache, vision changes, upper abdominal pain or shortness of breath. Objective: avss - Physical Exam General: Alert, Oriented x3, Cooperative, No apparent distress HEENT: Atraumatic, Normocephalic Lungs: Clear to auscultation, Normal air movement Cardiovascular: Regular rate, Regular Rhythm, Normal S1, Normal S2 Abdomen: Bowel Sounds Present, Soft, Non Tender, Non-Distended, - - Incisional dressing c/d/i, pannal edema Extremities: No edema, No Calf Tenderness Neurological: Neuro grossly intact Psych/Mental Status: Normal Affect, Appropriate, Alert and oriented to time, place, person, mood and affect Vital Signs Temp Pulse Resp BP Pulse Ox 97.0 F L 102 H 16 101/65 100 09/07/18 04:15 09/07/18 04:15 09/07/18 04:15 09/07/18 04:15 09/07/18 04:15 Oxygen Delivery Method Room Air Weight: 94.6 kg Body Mass Index (BMI) 38.1 Intake and Output for Last 24 Hours 09/05/18 09/06/18 09/07/18 23:59 23:59 23:59 Intake Total 2200 / 2200 Output Total 900 / 900 Balance 1300 / 1300 Laboratory Tests Past 24 Hrs 09/06/18 09/06/18 16:15 16:15 WBC 10.6 RBC 3.94 L Hgb 11.0 L Hct 34.2 L MCV 86.8 MCH 27.9 MCHC 32.2 RDW 14.2 RDW Differential 45.0 H Plt Count 214 MPV 12.4 H Blood Type O NEGATIVE Antibody Screen NEGATIVE Medical Necessity - Tobacco Use Smoking Status: Never smoker Assessment/Plan All Active Problems (Last Updated 09/06/18 @ 17:45 by Kenyetta Tidwell MD) 39 weeks gestation of (Acute) Preeclampsia (Acute) Breech presentation (Acute) 23yo POD#1 s/p PLTCS for breech presentation, hx preeclampsia -BPs stable - no si/sx worsening preeclampsia - -Rh positive -Routine care -OOB this morning
[2018-09-07 05:52] LABS: Hematocrit 28.3 % (37-47); Hemoglobin 9.1 g/dl (12.0-15.0); Mean Corp Hgb Conc 32.2 g/gl (32-36); Mean Corpuscular Hgb 27.9 pg (27.0-32.0); Mean Corpuscular Volume 86.8 fL (81-99); Mean Platelet Vol. 12.2 fl (6.2-12.0); Platelet Count 175 K/mm3 (150-450); RBC Distribution Width CV 14.5 % (11.6-14.6); RBC Distribution Width SD 45.8 fl (35.1-43.9); Red Blood Count 3.26 M/mm3 (4.2-5.4); White Blood Count 13.3 K/mm3 (4.4-11.0)
[2018-09-07 05:54] LABS: Scan Indicated on CBC? Y/N NO
[2018-09-07] MEDS: Senna/Docusate Sodium 1 Tablet PO (09:40)
[2018-09-07 09:46] LABS: Pathology Specimen OB SEE PATHOLOGY REPORT
--- NOTE | 2018-09-07 15:56 | NURSING ---
1130 Assisted out of bed and up to bathroom per request. Luiza care done after instructions, displays understanding. At sink to brush teeth and wash face. Tolerated well and requests to sit up in the chair. Remains up in the chair until 140. Tolerated well.
[2018-09-07] MEDS: 0.9% Saline Lock 10 ML Syringe IV (18:45)
[2018-09-07] MEDS: Prenatal Vits Tablet 1 TABLET PO (18:50)
[2018-09-08] MEDS: Ketorolac 30 MG/ML Syringe IV ×4 (01:23→19:50)
[2018-09-08] MEDS: 0.9% Saline Lock 10 ML Syringe IV ×5 (01:23→19:50)
[2018-09-08 01:44] VITALS: BP 129/88; PULSE 99; RESP 15; TEMP 36.9; O2SAT 94
--- NOTE | 2018-09-08 06:04 | PN.OBGYN_ITS ---
Patient Problems: Active and Suspected Problems (Last Updated 09/06/18 @ 17:45 by Kenyetta Maxwell MD) 39 weeks gestation of (Acute) Preeclampsia (Acute) Breech presentation (Acute) Subjective: Feels well. Pain is manageable. No difficulty voiding. Passing flatus, no bowel movement yet. Tolerates regular diet. infant continues nursing well. Denies heavy lochia. Objective: AVSS - Physical Exam General: Alert, Oriented x3, Cooperative, No apparent distress HEENT: Atraumatic, Normocephalic Lungs: Clear to auscultation, Normal air movement Cardiovascular: Regular rate, Regular Rhythm, Normal S1, Normal S2 Abdomen: Bowel Sounds Present, Soft, Non Tender, Non-Distended, - - Incisional dressing c/d/i, fundus firm and nontender, lochia scant Extremities: No Calf Tenderness, - - trace LE edema Neurological: Neuro grossly intact Psych/Mental Status: Normal Affect, Appropriate, Alert and oriented to time, place, person, mood and affect Vital Signs Temp Pulse Resp BP Pulse Ox 98.4 F 99 15 129/88 H 94 09/08/18 01:44 09/08/18 01:44 09/08/18 01:44 09/08/18 01:44 09/08/18 01:44 Oxygen Delivery Method Room Air Weight: 94.6 kg Body Mass Index (BMI) 38.1 Intake and Output for Last 24 Hours 09/06/18 09/07/18 09/08/18 23:59 23:59 23:59 Intake Total 2200 / 2200 1000 / 1000 Output Total 900 / 900 1300 / 1300 Balance 1300 / 1300 -300 / -300 Medical Necessity - Tobacco Use Smoking Status: Never smoker Assessment/Plan All Active Problems (Last Updated 09/06/18 @ 17:45 by Kenyetta Tidwell MD) 39 weeks gestation of (Acute) Preeclampsia (Acute) Breech presentation (Acute) 23yo POD#2 s/p PLTCS for breech presentation, hx preeclampsia -BPs stable - no si/sx worsening preeclampsia - -Rh NEGATIVE - infant RH negative - noRhogam indicated -Routine care -May consider d/c home this afternoon
[2018-09-08] MEDS: Senna/Docusate Sodium 1 Tablet PO (06:55)
[2018-09-08 08:29] VITALS: BP 130/85; PULSE 99; RESP 16; TEMP 36.9; O2SAT 97
[2018-09-08] MEDS: Prenatal Vits Tablet 1 TABLET PO (12:23)
--- NOTE | 2018-09-08 12:50 | PCM.DC.SUM ---
Discharge Date and Diagnosis Date of Admission: 09/06/18 Date of Discharge: 09/09/18 - Primary Discharge Diagnosis Active and Suspected Problems (Last Updated 09/06/18 @ 17:45 by Kenyetta Tidwell MD) 39 weeks gestation of (Acute) Preeclampsia (Acute) Breech presentation (Acute) Hospital Course and Treatment Operations: - - Low transverse section Summary of Care Provided: The patient is a 23 year old F admitted at 39+ weeks gestation for scheduled induction for preeclampsia without severe features. On admission exam her fetus was in breech presentation and she was not a candidate for external cephalic version due to low SEBASTIEN. She underwent an uncomplicated section with subsequent improvement of her blood pressures. She was and her postoperative course unremarkable. She was discharged to home on postoperative day # 3. - Physical Exam Vital Signs Temp Pulse Resp BP Pulse Ox 98.4 F 99 16 130/85 H 97 09/08/18 08:29 09/08/18 08:29 09/08/18 08:29 09/08/18 08:29 09/08/18 08:29 Oxygen Delivery Method Room Air Weight: 94.6 kg Body Mass Index (BMI) 38.1 Intake and Output for Last 24 Hours 09/06/18 09/07/18 09/08/18 23:59 23:59 23:59 Intake Total 2200 / 2200 1000 / 1000 Output Total 900 / 900 1300 / 1300 Balance 1300 / 1300 -300 / -300 Discharge Diet: No Restrictions Discharge Activity: Return to Normal Activity, May not drive while taking narcotic pain medications., May Shower, - - Do not place anything in the vagina (no douching, no tampons, no intercourse) May resume sexual activity in: 6 weeks Call your doctor if your incision/area has: Continuous Slow Oozing, Sudden Increased Bleeding, Increased Pain/ Swelling, Increased Redness Call your doctor if you observe: Fever of 101 or Higher, Inability to urinate, Inability to have a bowel movement, Using more than one pad per hour, Shortness of breath, Chest pain, Calf discomfort, Uncontrolled pain Suture Line Care: Avoid Pulling/Pushing Remove Dressing in (days):: 4 Cleanse incision/area with: Soap & Water Home Medications: Medications to take at Discharge Docusate Sodium [Colace] 100 mg PO BID PRN PRN #60 capsule 09/06/18 Ibuprofen 600 mg PO TID PRN #30 tablet 09/06/18 Vits [Prenatabs FA] 1 tablet PO DAILY 09/06/18 Oxycodone [Oxyir] 5 mg PO Q6H PRN PRN 7 Days #10 tablet 09/07/18 Following Prescrptions Were Given to Patient: Oxycodone [Oxyir] 5 mg PO Q6H PRN PRN 7 Days #10 tablet PRN Reason: Severe Pain (-05/08) Docusate Sodium [Colace] 100 mg PO BID PRN PRN #60 capsule PRN Reason: Constipation Ibuprofen 600 mg PO TID PRN #30 tablet PRN Reason: Pain Primary Care Physician: Care Physician,No Primary [Primary Care Provider] - Please Follow Up With: Abrahan Lynne MD When: 1-2 weeks Medical Necessity - Tobacco Use Smoking Status: Never smoker Meaningful Use Info Meaningful Use Diagnoses (Choose all that apply): None applicable
[2018-09-08 14:21] VITALS: BP 135/92; PULSE 99; RESP 18; TEMP 36.9; O2SAT 96
[2018-09-08 19:56] VITALS: BP 135/94; PULSE 115; RESP 17; TEMP 37.2; O2SAT 94
[2018-09-08 20:01] VITALS: PULSE 104
[2018-09-09 01:40] VITALS: BP 131/91; PULSE 106; RESP 16; TEMP 37.1; O2SAT 93
[2018-09-09] MEDS: Senna/Docusate Sodium 1 Tablet PO (05:41)
[2018-09-09] MEDS: Acetaminophen 325 MG Tablet PO ×2 (05:41→13:12)
[2018-09-09 09:00] VITALS: BP 136/90; PULSE 104; RESP 18; TEMP 36
[2018-09-09] MEDS: Prenatal Vits Tablet 1 TABLET PO (09:36)
[2018-09-09 12:40] VITALS: BP 143/93; PULSE 105; RESP 18; TEMP 36.1
== END 2018-09-09 14:40 | disposition home or self-care (01) | DRG 788 ==
PROVIDERS: Admitting Provider Obstetrics & Gynecology; Referring Provider Obstetrics & Gynecology; Visit Provider Obstetrics & Gynecology
DX: O32.1XX0 Maternal care for breech presentation, not applicable or unspecified (principal); Z3A.39 39 weeks gestation of pregnancy; Z37.0 Single live birth; O14.94 Unspecified pre-eclampsia, complicating childbirth
CPT/HCPCS: 59025; 59050; 85027; 86850; 86900; 88307; 99218; J7120; A4216; G0378; J2405

== ENCOUNTER → 2020-10-27 10:07 | Outpatient (CLI) | payer SELFPAY ==
[2018-09-06 15:53] VITALS: BMI 38.1
[2020-10-29 20:08] LABS: Chlamydia By Nucleic Acid AMP Negative (Negative)
[2020-10-29 20:33] LABS: Gonococcus By Nucleic Acid AMP Negative (Negative); HPV Reflexed? NOT INDICATED
== END ==
PROVIDERS: Visit Provider Student in an Organized Health Care Education/Training Program
DX: Z12.4 Encounter for screening for malignant neoplasm of cervix (principal); Z11.3 Encounter for screening for infections with a predominantly sexual mode of transmission
CPT/HCPCS: 87491; 87591; 88175; G0145

== ENCOUNTER → 2020-11-02 13:08 | Outpatient (CLI) | payer SELFPAY ==
[2018-09-06 15:53] VITALS: BMI 38.1
[2020-11-02 13:38] LABS: Absolute Lymphocyte Count 2.07 X10^3/uL (0.83-4.51); Absolute Neutrophil Count 8.9 X10^3/uL (2.0-7.7); Basophil# 0.04 X10^3/uL; Basophil% 0.3 % (0-1); Eosinophil# 0.13 X10^3/uL; Eosinophils% 1.1 % (0-5); Hematocrit 36.4 % (37-47); Hemoglobin 12.2 g/dL (12.0-15.0); Lymphocyte # 2.07 X10^3/ul (4.0); Lymphocyte % 17.4 % (19-41); Mean Corp Hgb Conc 33.5 g/dL (32-36); Mean Corpuscular Volume 89.4 fL (81-99); Mean Platelet Vol. 11.9 fl (6.2-12.0); Monocyte% 5.9 % (0-10); NRBC Flagged by Analyzer 0 % (0-5); Neutrophil # 8.87 X10^3/uL (2.7-7.7); Neutrophil % 74.8 % (47-70); Platelet Count 277 K/mm3 (150-450); RBC Distribution Width SD 42.4 fl (35.1-43.9); Red Blood Count 4.07 M/mm3 (4.2-5.4); White Blood Count 11.9 K/mm3 (4.4-11.0)
[2020-11-02 13:47] LABS: Glucose Challenge Gest 1H 50g 119 mg/dL (70-140)
[2020-11-02 14:29] LABS: HIV - WCH Non-Reactive (Nonreactive); Hepatitis B Surface Antigen Non-Reactive (Nonreactive); Hepatitis C Antibody Non-Reactive (Nonreactive); Rubella IgG Reactive (Nonreactive); Syphilis Antibodies Non-reactive
== END ==
PROVIDERS: Visit Provider Student in an Organized Health Care Education/Training Program
DX: Z34.81 Encounter for supervision of other normal pregnancy, first trimester (principal); E66.9 Obesity, unspecified
CPT/HCPCS: 36415; 82950; 85025; 86703; 86762; 86780; 86803; 87086; 87088; 87340

== ENCOUNTER → 2021-03-18 | Outpatient (CLI) | payer SELFPAY ==
[2021-03-18 17:08] LABS: Hematocrit 34.2 % (37-47); Hemoglobin 11.4 g/dL (12.0-15.0); Mean Corp Hgb Conc 33.3 g/dL (32-36); Mean Corpuscular Hgb 30.1 pg (27.0-32.0); Mean Corpuscular Volume 90.2 fL (81-99); Mean Platelet Vol. 12.6 fl (6.2-12.0); Platelet Count 267 K/mm3 (150-450); RBC Distribution Width CV 13.4 % (11.6-14.6); Red Blood Count 3.79 M/mm3 (4.2-5.4); White Blood Count 11.1 K/mm3 (4.4-11.0)
[2021-03-18 17:37] LABS: Glucose Challenge Gest 1H 50g 121 mg/dL (70-140)
== END | disposition home or self-care (01) ==
LOC: LABSPEC 15:24
PROVIDERS: Visit Provider Obstetrics & Gynecology
DX: Z34.83 Encounter for supervision of other normal pregnancy, third trimester (principal)
CPT/HCPCS: 36415; 82950; 85027; 86850

== ENCOUNTER → 2021-05-03 | Outpatient (CLI) | payer SELFPAY | END | disposition home or self-care (01) | LOC: LABSPEC 14:34 | PROVIDERS: Visit Provider Student in an Organized Health Care Education/Training Program | DX: Z36.85 Encounter for antenatal screening for Streptococcus B (principal) | CPT/HCPCS: 87081 ==

== ENCOUNTER → 2021-05-20 | Outpatient (CLI) | payer SELFPAY | END | disposition home or self-care (01) | LOC: LABSPEC 14:30 | PROVIDERS: Visit Provider Obstetrics & Gynecology | DX: Z34.83 Encounter for supervision of other normal pregnancy, third trimester (principal); Z03.818 Encounter for observation for suspected exposure to other biological agents ruled out | CPT/HCPCS: 87635; U0005; U0003 ==

== ENCOUNTER 2021-05-24 05:00 | Inpatient (IN) | payer SELFPAY ==
[2021-05-24] VITALS (21 sets, daily range): BP systolic 90–112; BP diastolic 55–75; PULSE 71–99; RESP 14–18; TEMP 35.9–36.7; O2SAT 93–99; BMI 38.9
[2021-05-24] MEDS: Lactated Ringers 1,000 ML 999 ML IV (05:35)
[2021-05-24 06:01] LABS: Absolute Lymphocyte Count 1.98 X10^3/uL (0.83-4.51); Absolute Neutrophil Count 7.7 X10^3/uL (2.0-7.7); Basophil# 0.03 X10^3/uL; Basophil% 0.3 % (0-1); Eosinophils% 0.9 % (0-5); Hematocrit 31.7 % (37-47); Hemoglobin 10.4 g/dL (12.0-15.0); Lymphocyte # 1.98 X10^3/ul (0.83-4.51); Lymphocyte % 18.5 % (19-41); Mean Corp Hgb Conc 32.8 g/dL (32-36); Mean Corpuscular Hgb 28.5 pg (27.0-32.0); Mean Corpuscular Volume 86.8 fL (81-99); Mean Platelet Vol. 12.8 fl (6.2-12.0); Monocyte# 0.86 X10^3/uL; NRBC Flagged by Analyzer 0 % (0-5); Neutrophil # 7.66 X10^3/uL (2.7-7.7); Neutrophil % 71.6 % (47-70); Platelet Count 229 K/mm3 (150-450); RBC Distribution Width CV 14.1 % (11.6-14.6); RBC Distribution Width SD 44.9 fl (35.1-43.9); Red Blood Count 3.65 M/mm3 (4.2-5.4); White Blood Count 10.7 K/mm3 (4.4-11.0)
[2021-05-24] MEDS: Acetaminophen 500 MG Tablet 1000 MG PO ×4 (06:13→23:00)
[2021-05-24] MEDS: Lactated Ringers 1,000 ML 150 ML IV (06:37)
[2021-05-24] MEDS: Sodium Citrate/Citric Acid 30 ML UDC PO (07:01)
--- NOTE | 2021-05-24 07:20 | PCM.HP.BLA ---
History and Physical Date of Admission: 05/24/21 Chief complaint: Repeat section History of present illness: 26-year-old G2, P1 at 39 weeks and 1 day with UYEN: 05/30/2021 by LMP arrives for repeat section. Denies headache, visual changes, chest pain, shortness of breath, nausea vomiting, right upper quadrant pain. Patient states good movement Obstetrical history: G1: 39-week primary section for breech female 09/06/2018 G2: Current Past medical history: None Medications: vitamin Past surgical history: section Allergies: No known drug allergies Family history: Denies history DVT or PE Social history: Denies smoking, alcohol use, drug use Review of systems: Besides above pertinent positives a full review of systems was performed and found to be negative Physical exam: Vitals: Blood pressure 112/69 pulse 99 respiratory rate 18 temperature 96.7 ?F SPO2 97% on room air General: Normal-appearing no acute distress HEENT: Normocephalic atraumatic no cervical of adenopathy Cardiac/respiratory: No use of accessory muscles, nonlabored breathing Abdomen: Soft, nontender, gravid Extremities: No peripheral edema normal peripheral pulses Psych: Normal affect normal demeanor nonpressured speech Labs: White blood cell count 10.7 hemoglobin 10.4 hematocrit 31.7% platelets 229. Blood type O- antibody negative Assessment and plan: 26-year-old G2, P1 at 39 weeks and 1 day for repeat section Admit to labor and delivery CEFM GBS negative Rh- Ancef Routine orders Anesthesia to see
--- NOTE | 2021-05-24 08:34 | EX.PCM.OBRPT ---
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 Normal uterus, tubes, and ovaries. Consent: Patient with a history of section need of repeat section. Patient understands the risk of the procedure include but are not limited to visceral or vascular injury, prolonged hospitalization, blood loss and need for transfusion, reoperation. Patient stated understanding and wished to proceed. All questions were answered and consent was signed. Procedure: Patient was brought back to the OR where spinal anesthesia was found to be adequate. 3 g of Ancef were given for infection prophylaxis. Patient was prepared and draped in a dorsal supine position with leftward tilt. A Pfannenstiel incision was made at the skin with a scalpel. The incision was carried down to the fascia with a scalpel. The fascia was excised and extended laterally. Inferior aspect of the fascia was grasped with a clamp and the underlying rectus and pyramidalis muscle were dissected off sharply with Richards scissors. In a similar fashion the superior aspect of the fascia was grasped with a clamp and the underlying rectus muscle was dissected off sharply. Rectus muscle was dissected at the midline down to the level of pubic symphysis. Preperitoneal fatty tissue was noted and peritoneum was entered bluntly. Peritoneum was extended superiorly and inferiorly with good visualization of bladder. Bladder blade was inserted and vesicouterine peritoneum was identified. Low transverse hysterotomy was made. Hand was brought into the incision and gentle fundal pressure was applied once the bladder blade was removed and the head was brought into the incision. Head and shoulders were delivered with ease. Cord was cut and clamped. Baby was handed off to nursing. Placenta was delivered via cord traction and fundal massage. IV oxytocin was initiated in order to facilitate uterine contractions. Uterus was exteriorized and wiped out with dry laparotomy sponge in order to remove remaining placental membranes. Uterus was closed in a continuous running fashion. Second layer was performed. [id number] sutures and Ashlie were placed for hemostasis. Good hemostasis was noted. Uterus was placed back in the abdominal cavity reinspected, good hemostasis was noted. Fascia was closed in a continuous running fashion. Skin was closed in a subcuticular fashion. All counts were correct x2. Patient tolerated the procedure well and was brought to recovery in a stable condition.
[2021-05-24] MEDS: Oxytocin 30 units/NS 500 ml 30 UNITS/500 ML IV.SOLN 167 UNITS IV (09:05)
[2021-05-24] MEDS: Ketorolac 30 MG/ML Syringe IV ×3 (09:45→23:01)
--- NOTE | 2021-05-24 10:29 | NURSING ---
three small clots noted on pad.
[2021-05-24] MEDS: Lactated Ringers 1,000 ML 100 ML IV (12:42)
--- NOTE | 2021-05-24 15:06 | NURSING ---
Pt ambulated to rocking chair without difficulty. Gait steady, denies lightheadedness or dizziness.
[2021-05-24] MEDS: 0.9% Saline Lock 10 ML Syringe IV (23:01)
[2021-05-25 03:22] VITALS: BP 95/62; PULSE 107; RESP 14; TEMP 36.4
[2021-05-25] MEDS: 0.9% Saline Lock 10 ML Syringe IV (05:12)
[2021-05-25] MEDS: Ketorolac 30 MG/ML Syringe IV (05:12)
[2021-05-25] MEDS: Acetaminophen 500 MG Tablet 1000 MG PO (05:18)
[2021-05-25 05:42] LABS: Hematocrit 28.8 % (37-47); Hemoglobin 9.3 g/dL (12.0-15.0); Mean Corp Hgb Conc 32.3 g/dL (32-36); Mean Corpuscular Hgb 28.4 pg (27.0-32.0); Mean Corpuscular Volume 87.8 fL (81-99); Mean Platelet Vol. 12.6 fl (6.2-12.0); Platelet Count 203 K/mm3 (150-450); RBC Distribution Width CV 14.2 % (11.6-14.6); RBC Distribution Width SD 45.4 fl (35.1-43.9); Red Blood Count 3.28 M/mm3 (4.2-5.4); White Blood Count 11.3 K/mm3 (4.4-11.0)
--- NOTE | 2021-05-25 09:42 | PN.OBGYN_ITS ---
Subjective Subjective Patient without complaints. Tolerating diet well. Positive flatus. Able to void on own. Pain is well controlled. Wants to go home later today if baby is able to go. Objective Data Objective Data Vital Signs: Vital Signs Temp Pulse Resp BP Pulse Ox 97.5 F L 107 H 14 95/62 97 05/25/21 03:22 05/25/21 03:22 05/25/21 03:22 05/25/21 03:22 05/24/21 22:15 Oxygen Delivery Method Room Air Weight: 213 lb 2.992 oz Body Mass Index (BMI) 38.9 Intake & Output: Intake and Output for Last 24 Hours 05/23/21 05/24/21 05/25/21 23:59 23:59 23:59 Intake Total 6570 / 6570 800 / 800 Output Total 2024 / 2024 1500 / 1500 Balance 4545 / 4545 -700 / -700 Lab / Micro Data Result Diagrams: 05/25/21 05:25 Labs: Laboratory Results - last 24 hr 05/25/21 05:25: WBC 11.3 H, RBC 3.28 L, Hgb 9.3 L, Hct 28.8 L, MCV 87.8, MCH 28.4, MCHC 32.3, RDW Std Deviation 45.4 H, RDW Coeff of Victor Manuel 14.2, Plt Count 203, MPV 12.6 H Physical Exam Narrative Mepilex dressing is clean, dry, intact. Good urine output. Hemoglobin okay. Assessment & Plan (1) delivery delivered: PLAN: Doing well postoperative day #1 status post primary section. Will release to home later today if baby is able to go. Routine home- going instructions given.
[2021-05-25 09:43] VITALS: BP 111/61; PULSE 104; RESP 16; TEMP 36.4
--- NOTE | 2021-05-25 09:44 | PCM.DC ---
Discharge Instructions Diet Discharge Diet: No restrictions Activity May resume sexual activity in: 4-6 weeks Lifting Restrictions: 20 pounds Dressing / Incision Call your doctor if your incision/area has: Continuous Slow Oozing, Sudden Increased Bleeding, Increased Pain/ Swelling, Increased Redness and Foul Smelling Discharge Call your doctor if you observe: Fever of 101 or Higher, Inability to urinate, Inability to have a bowel movement and Using more than 1 pad per hour Follow Up Care Please Follow Up With: Greg Daly MD When: Call [phone] for appointment to be seen in 2 weeks. Test Results: Test results from this visit will be discussed in further detail at your follow-up appointment, if applicable. Discharge Plan Admission Admit Date/Time: 05/24/21 05:00 Primary Reason for Your Visit: Section Attending Provider: Greg Daly Primary Care Provider: Sandi Saez Primary Discharge Orders/Prescriptions Prescriptions: New oxycodone 5 mg capsule 5 mg PO Q6H PRN (Reason: pain) 7 Days Qty: 10 RF: 0 Continued Prenatabs FA 1 TABLET tablet 1 tab PO DAILY RF: 0 docusate sodium [DOK] 100 MG capsule 100 mg PO BID PRN PRN (Reason: Constipation) Qty: 60 RF: 0 ibuprofen 600 MG tablet 600 mg PO TID PRN (Reason: Pain) Qty: 30 RF: 0 Referrals / Follow Up: Care Physician,Sandi Primary [Primary Care Provider] - Disposition Disposition (needs filled in before D/C Order can be placed): Home, Self Care
[2021-05-25 10:00] VITALS: BP 120/79; PULSE 106; RESP 17; TEMP 36.5; O2SAT 96
[2021-05-25] MEDS: Enoxaparin 40 MG/0.4 ML Syringe SC (10:28)
[2021-05-25] MEDS: Senna/Docusate Sodium 1 Tablet PO (10:28)
[2021-05-25] MEDS: Ibuprofen 600 MG Tablet PO (10:29)
== END 2021-05-25 12:45 | disposition home or self-care (01) | DRG 788 ==
PROVIDERS: Admitting Provider Obstetrics & Gynecology; Referring Provider Obstetrics & Gynecology; Visit Provider Obstetrics & Gynecology
PROC: 10D00Z1 Extraction of Products of Conception, Low, Open Approach (ICD-10-PCS; CPT 59514; principal; 2021-05-24 07:15)
DX: O34.211 Maternal care for low transverse scar from previous cesarean delivery (principal); Z37.0 Single live birth; Z3A.39 39 weeks gestation of pregnancy
CPT/HCPCS: 85025; 85027; 86850; 86900; 86901; 94762; 99218; 99251; J7120; A4216; G0378; G0463